=== PATIENT | female | born 1950 | race Caucasian/White ===

== ENCOUNTER → 2020-08-17 09:42 | Outpatient (BNVA) | payer MEDICARE, MEDICAID, SELFPAY | PROVIDERS: Visit Provider Anesthesiology | DX: M96.1 Postlaminectomy syndrome, not elsewhere classified (principal); G89.4 Chronic pain syndrome; M17.0 Bilateral primary osteoarthritis of knee; Z79.891 Long term (current) use of opiate analgesic | CPT/HCPCS: 99214 ==

== ENCOUNTER 2020-09-05 05:13 | Outpatient (REF) | payer MEDICARE, MEDICAID, SELFPAY ==
--- NOTE | 2020-09-05 13:12 | FL_ITS ---
EXAMINATION: XR FLUOROSCOPY WITH IMAGES CLINICAL INFORMATION: Chronic pain syndrome COMPARISON: None. TECHNIQUE: Fluoroscopy performed by AGUSTIN Enrique. Fluoroscopy time: 0.3 minutes DAP: 1.13 Gycm2 Images: 1 FL/FL guidance in treatment room IMPRESSION: Single fluoroscopic spot image of the lower thoracic spine is seen. A catheter projects over the midline thoracic spine.
== END 2020-09-05 05:14 | disposition home or self-care (01) ==
LOC: HO.RADIR 05:13
PROVIDERS: Visit Provider Anesthesiology
DX: G89.4 Chronic pain syndrome (principal); M96.1 Postlaminectomy syndrome, not elsewhere classified; M17.0 Bilateral primary osteoarthritis of knee; Z79.891 Long term (current) use of opiate analgesic
CPT/HCPCS: 61070; Q9967

== ENCOUNTER 2020-09-29 07:08 | Day surgery (SDC) | payer MEDICARE, MEDICAID, SELFPAY ==
[2020-09-26 08:47] VITALS: BMI 38.5
--- NOTE | 2020-09-28 13:14 | P.CONAN_ITS ---
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 Obesity Osteoarthritis of knees, bilateral Postlaminectomy syndrome Surgical History Surgical History S/P insertion of intrathecal pump Social History Social History Advance Directives Information Provided: No Meds Allergies Allergy/AdvReac Type Severity Reaction Status Date / Time amitriptyline [From Elavil] Allergy unknown Verified 09/05/20 13:44 aripiprazole [From Abilify] Allergy unknown Verified 08/17/20 10:37 gabapentin Allergy leg Verified 09/05/20 13:44 swelling penicillin G Allergy unknown Verified 08/17/20 10:37 propranolol [From Inderal LA] Allergy asthma Verified 09/05/20 13:44 Sulfa (Sulfonamide Allergy Rash Verified 09/05/20 13:44 Antibiotics) Home Medications Medication Instructions Recorded Confirmed Type atorvastatin 40 mg tablet 40 mg PO BEDTIME 08/17/20 09/26/20 History duloxetine 60 mg capsule,delayed 60 mg PO DAILY 08/17/20 09/26/20 History release famotidine 20 mg tablet 20 mg PO BID 08/17/20 09/26/20 History furosemide 20 mg tablet 20 mg PO DAILY 08/17/20 09/26/20 History metoprolol tartrate 50 mg tablet 50 mg PO BID 08/17/20 09/26/20 History montelukast 10 mg tablet 10 mg PO DAILY 08/17/20 09/26/20 History pantoprazole 40 mg tablet,delayed 40 mg PO DAILY 08/17/20 09/26/20 History release potassium chloride 10 mEq 10 meq PO DAILY 08/17/20 09/26/20 History capsule,extended release topiramate 50 mg tablet 50 mg PO BID 08/17/20 09/26/20 History albuterol sulfate [Ventolin HFA] 2 puff INHALATION Q4-6H PRN 09/26/20 09/26/20 History fluticasone propion-salmeterol 1 inh INHALATION BID 09/26/20 09/26/20 History [Advair Diskus] Exam Exam Date and Time: September 28, 2020 1314 Height,Weight and Vital Signs: Height 5 ft Weight 89.358 kg Assessment and Plan Assessment Anesthesia Assessment: Chart Reviewed Documented by User: Carl Muñoz 09/29/20 07:49 [facility] Past Medical History Medical History 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 Obesity Osteoarthritis of knees, bilateral Postlaminectomy syndrome Surgical History Surgical History S/P insertion of intrathecal pump Social History Social History Advance Directives Information Provided: No Meds Allergies Allergy/AdvReac Type Severity Reaction Status Date / Time amitriptyline [From Elavil] Allergy unknown Verified 09/05/20 13:44 aripiprazole [From Abilify] Allergy unknown Verified 08/17/20 10:37 gabapentin Allergy leg Verified 09/05/20 13:44 swelling penicillin G Allergy unknown Verified 08/17/20 10:37 propranolol [From Inderal LA] Allergy asthma Verified 09/05/20 13:44 Sulfa (Sulfonamide Allergy Rash Verified 09/05/20 13:44 Antibiotics) Home Medications Medication Instructions Recorded Confirmed Type atorvastatin 40 mg tablet 40 mg PO BEDTIME 08/17/20 09/26/20 History duloxetine 60 mg capsule,delayed 60 mg PO DAILY 08/17/20 09/26/20 History release famotidine 20 mg tablet 20 mg PO BID 08/17/20 09/26/20 History furosemide 20 mg tablet 20 mg PO DAILY 08/17/20 09/26/20 History metoprolol tartrate 50 mg tablet 50 mg PO BID 08/17/20 09/26/20 History montelukast 10 mg tablet 10 mg PO DAILY 08/17/20 09/26/20 History pantoprazole 40 mg tablet,delayed 40 mg PO DAILY 08/17/20 09/26/20 History release potassium chloride 10 mEq 10 meq PO DAILY 08/17/20 09/26/20 History capsule,extended release topiramate 50 mg tablet 50 mg PO BID 08/17/20 09/26/20 History albuterol sulfate [Ventolin HFA] 2 puff INHALATION Q4-6H PRN 09/26/20 09/26/20 History fluticasone propion-salmeterol 1 inh INHALATION BID 09/26/20 09/26/20 History [Advair Diskus] Exam Airway Mallampati Class: II TM Dist: >3cm Neck ROM: Full
--- NOTE | 2020-09-28 18:26 | P.HPSUR_ITS ---
Pre-Procedural Eval Section A The patient is an INPATIENT: No The History & Physical has been completed within 30 days and I have reviewed it.: No Section B Chief Complaint: Chronic Pain Syndrome Details of Present Illness: postlaminectomy syndrome Allergies: Allergies Allergy/AdvReac Type Severity Reaction Status Date / Time amitriptyline [From Elavil] Allergy unknown Verified 09/05/20 13:44 aripiprazole [From Abilify] Allergy unknown Verified 08/17/20 10:37 gabapentin Allergy leg Verified 09/05/20 13:44 swelling penicillin G Allergy unknown Verified 08/17/20 10:37 propranolol [From Inderal LA] Allergy asthma Verified 09/05/20 13:44 Sulfa (Sulfonamide Allergy Rash Verified 09/05/20 13:44 Antibiotics) Review of Systems Sugical H&P ROS: Negative: Cardiovascular, Respiratory, Neurological, Psychiatric, Hem-Onc, Allergic/Immunologic, Gastrointestinal, Genitourinary, Int egumentary, Endocrine and Eyes/Ears/Nose/Throat and Yes, Specify: Constitution ( obesity) and Musculoskeletal ( postlaminectomy syndrome) Exam Surgical H&P Exam: Normal: HEENT, Normal: Heart, Normal: Lungs, Normal: Extremities, Normal: Skin and Normal: Neurological and Significant Findings: Abdomen ( presence of a pain pump on anterior abdomen) Plan Diagnosis/Plan: Unchanged Patient has been examined and remains a candidate for the planned procedure
--- NOTE | 2020-09-28 18:30 | P.OP_ITS ---
Operative Note Operative Note Date of Service: 09/29/20 Narrative: in the projection of previous very well-healed scar on the anterior abdomen the local anesthetic bupivacaine was injected in the linear horizontal fashion. After that Nine cm incision was performed in patient's abdomen alongside the injected line. Thorough hemostasis was obtained using cautery device. The intrathecal pain pump was located in the wound the anchoring sutures were severed and the pump was delivered to the surface of the patient's abdomen. Intrathecal catheter was located and dissected from surrounding adhesions. It was disconnected from the pump. Clear flow of CSF from the catheter was observed. Thorough hemostasis was performed. The wound was irrigated with vancomycin containing normal saline and then epidural introducer needle was used to connect both wounds and dislodged the intrathecal catheter into the side wound. the sutureless connected device was connected to the new pump containing a new batch of the opioid medication.. Aspiration of the side port of the pump revealed c lear flow of CSF. Two anchoring 0-0 etibone sutures were applied in most SUPERIOR MEDIAL AND SUPERIOR LATERAL CORNERS OF THE WOUND. After that the sutures were connected to the brackets s on the body of the pump, intrathecal catheter was gathered behind the body of the pump and pump was dislodged into the wound. After that the anchoring sutures were tied. Thorough irrigation was performed again in both wounds. Thorough hemostasis was verified. 0 polisorb sutures were used to close both wounds, 2-0 suture of the same nature were used to approximate the skin. [place] were applied to the skin line and Bacitracin or ointment was applied to the staple lines. Sterile dressing with sterile 4x4s was performed, abdominal binder was applied. Upon completion of the procedure patient was awaken extubated and taken outside of the operating room to recovery room where SHE recovered uneventfully. SHE went home without immediate complication.
[2020-09-29 08:01] LABS: Glucose, Whole Blood 72 mg/dL (60-115)
[2020-09-29 08:19] VITALS: BP 154/55; PULSE 65; RESP 14; TEMP 36.6; O2SAT 98
[2020-09-29] MEDS: vancomycin HCL 1,000 MG in 0.9 % Sodium Chloride 250 ML 270 MG IV (08:24)
[2020-09-29] MEDS: Lactated Ringers 1,000 ML 100 ML IVCONT (08:24)
--- NOTE | 2020-09-29 11:34 | P.OP_ITS ---
Operative Note Operative Note Date of Service: 09/29/20 Narrative: DO TAYLER DUONG CHART IS 69 YEARS OLD FEMALE WHO PRESENTED TODAY INTO THE OPERATING ROOM FOR REMOVAL AND REIMPLANTATION OF INTRATHECAL PUMP DELIVERY SYSTEM. Previously she was examined with dye study of for the catheter there were no abnormalities found in the catheter. She has 15 cc of the intrathecal fluid in the old pump. She was explained informed consent and all risks and benefits of new intrathecal pain pump were explained to the patient including bleeding infection spread of the infection into the spinal canal with resulting meningitis and abscess as well as sepsis. Patient understood the consent she was taking inside of the operating room and was positioned supine on the operating table. [place] side of anesthesiologies monitors were applied and patient induced with general anesthesia LMA. Anterior abdomen was prepped with ChloraPrep and draped with full body drape including [place] film. in the projection of previous very well-healed scar on the anterior abdomen the local anesthetic bupivacaine was injected in the linear horizontal fashion. After that Nine cm incision was performed in patient's abdomen alongside the injected line. Thorough hemostasis was obtained using cautery device. The intrathecal pain pump was located in the wound the anchoring sutures were Not found and the pump was delivered to the surface of the patient's abdomen. Intrathecal catheter was located and dissected from surrounding adhesions. It was disconnected from the pump. Clear flow of CSF from the catheter was observed. Thorough hemostasis was performed. The wound was irrigated with vancomycin c ontaining normal saline. the sutureless connecting device of the old pump was connected to the new pump containing a new batch of the opioid medication.. Aspiration of the side port of the pump revealed clear flow of CSF. Two anchoring 0-0 Tycron sutures were applied in most SUPERIOR MEDIAL AND inferior LATERAL CORNERS OF THE WOUND. After that the sutures were connected to the brackets s on the body of the pump, intrathecal catheter was gathered behind the body of the pump and pump was dislodged into the wound. After that the anchoring sutures were tied. Thorough irrigation was performed again in both wounds. Thorough hemostasis was verified. 0 polisorb sutures were used to close both wounds, 2-0 suture of the same nature were used to approximate the skin. nylon sutures 3-0 were applied to the skin line and Steri-Strips were applied to the staple lines. Sterile dressing with sterile 4x4s was performed, abdominal binder was applied. Upon completion of the procedure patient was awaken extubated and taken outside of the operating room to recovery room where SHE recovered uneventfully. SHE went home without immediate complication.
--- NOTE | 2020-09-29 11:37 | PM.OP ---
Brief Operative Note Date of Service: 09/29/20 Pre-op diagnosis: CHRONIC PAIN SYNDROME POSTLAMINECTOMY SYNDROME Post-op diagnosis: same Procedure: REMOVAL OF THE OLD INTRATHECAL DRUG DELIVERY SYSTEM PAIN PUMP 20 ML [employer] SYNCHROMED 2 AND IMPLANTATION OF THE 40 ML [employer] INTRATHECAL DRUG DELIVERY SYSTEM PAIN PUMP SYNCHROMED 2. Implants: SYNCHROMED 2 40 ML ITDD. Surgeon: Omar Santiago MD Estimated blood loss (mL): 20 Pathology: none sent Condition: stable Disposition: PACU
[2020-09-29 11:38] VITALS: BP 141/48; PULSE 81; RESP 12; TEMP 36.6; O2SAT 98
[2020-09-29 11:43] VITALS: BP 130/70; PULSE 84; RESP 14; O2SAT 97
[2020-09-29 11:48] VITALS: BP 146/72; PULSE 74; RESP 14; O2SAT 97
[2020-09-29 11:53] VITALS: BP 142/65; PULSE 77; RESP 16; O2SAT 97
[2020-09-29 12:08] VITALS: BP 133/43; PULSE 78; RESP 18; O2SAT 98
--- NOTE | 2020-09-29 13:19 | HO.POSTANES ---
Post Anesthesia Evaluation Post Anesthesia Evaluation Vital Signs: Vital Signs Temp Pulse Resp BP Pulse Ox 09/29/20 12:08 78 18 133/43 L 98 09/29/20 11:53 77 16 142/65 H 97 09/29/20 11:48 74 14 146/72 H 97 09/29/20 11:43 84 14 130/70 97 09/29/20 11:38 97.9 F 81 12 141/48 H 98 09/29/20 08:19 97.8 F 65 14 154/55 H 98 Anesthesia: General LMA Mental Status: Awake Pain Control: Satisfactory Nausea/Vomiting: None Hydration: Adequate Anesthesia-Related Issues: No Anes. Related Issues
== END 2020-09-29 13:00 | disposition home or self-care (01) ==
PROVIDERS: PCP Pediatrics; Visit Provider Anesthesiology
PROC: (CPT 62362; principal; 2020-09-29 09:10)
DX: M96.1 Postlaminectomy syndrome, not elsewhere classified (principal); G89.4 Chronic pain syndrome; M17.0 Bilateral primary osteoarthritis of knee; Z79.891 Long term (current) use of opiate analgesic; Z79.899 Other long term (current) drug therapy
CPT/HCPCS: 62362; 82947; C1772; J1100; J2250; J2405; J3010; J3370

== ENCOUNTER → 2020-10-05 10:33 | Outpatient (BNVA) | payer MEDICARE, MEDICAID, SELFPAY | PROVIDERS: PCP Pediatrics; Visit Provider Anesthesiology | DX: M17.0 Bilateral primary osteoarthritis of knee (principal); M96.1 Postlaminectomy syndrome, not elsewhere classified; G89.4 Chronic pain syndrome; Z79.891 Long term (current) use of opiate analgesic | CPT/HCPCS: 99212 ==

== ENCOUNTER → 2020-10-12 10:22 | Outpatient (BNVA) | payer MEDICARE, MEDICAID, SELFPAY | PROVIDERS: Visit Provider Anesthesiology | DX: M96.1 Postlaminectomy syndrome, not elsewhere classified (principal); G89.4 Chronic pain syndrome; M17.0 Bilateral primary osteoarthritis of knee; Z79.891 Long term (current) use of opiate analgesic | CPT/HCPCS: 99212 ==